=== PATIENT | male | born 1975 | race Asian ===

== ENCOUNTER 2019-01-23 22:27 | Emergency (ER) | payer SELFPAY ==
[~2019-01-23] VITALS: Ht 182.9 cm; Wt 95.0 kg
[2019-01-23 23:22] LABS: BASOPHILS # (AUTO) 0.04 x10^3/uL (0-0.1); BASOPHILS % (AUTO) 1 % (0-1); EOSINOPHILS # (AUTO) 0.12 x10^3/uL (0-0.4); EOSINOPHILS % (AUTO) 2 % (1-7); LYMPHOCYTES % (AUTO) 18 % (22-44); MD NO; MEAN CORPUSCULAR HEMOGLOBIN 30.4 pg (27.5-34.5); MEAN CORPUSCULAR HGB CONC 33.4 g/dL (33.2-36.2); MEAN CORPUSCULAR VOLUME 91.1 fL (81-97); MEAN PLATELET VOLUME 6.4 fL (7.4-10.4); MONOCYTES # (AUTO) 0.52 x10^3/uL (0.2-0.8); MONOCYTES % (AUTO) 7 % (2-9); NEUTROPHILS # (AUTO) 5.46 x10^3/uL (1.8-6.8); NEUTROPHILS % (AUTO) 74 % (42-75); PLATELET COUNT 371 x10^3/uL (130-400); RED BLOOD COUNT 4.76 x10^6/uL (4.38-5.82)
[2019-01-23 23:33] LABS: ALANINE AMINOTRANSFERASE 29 U/L (12-78); ALBUMIN 3.5 g/dL (3.4-5.0); ANION GAP 2 mmol/L (5-15); CALCIUM 8.4 mg/dL (8.5-10.1); CHLORIDE 111 mmol/L (98-107); CREATININE 1.08 mg/dL (0.7-1.3)
[2019-01-23 23:37] LABS: ALKALINE PHOSPHATASE 92 U/L (45-117); BILIRUBIN,TOTAL 0.4 mg/dL (0.2-1.0); TOTAL PROTEIN 6.6 g/dL (6.4-8.2); TROPONIN I < 0.015 ng/mL (0.000-0.045)
--- NOTE | 2019-01-24 01:32 | NUR ---
pt to room from lobby
--- NOTE | 2019-01-24 01:52 | NUR ---
ASSUMED CARE OF PATIENT. PATIENT REPORTS HAVING CENTER CHEST PAIN THAT HAS RESOVLED, BUT PATIENT STILL HAS EPIGASTRIC ABD PAIN. NO ACUTE DISTRESS NOTED. VS STABLE. CALL LIGHT IN PLACE. WILL CONTINUE TO MONITOR.
[2019-01-24] MEDS ORDERED: MAALOX/HYOSCYAMINE/LIDOCAINE 45 ML BTL ONE (01:56)
[2019-01-24] MEDS ORDERED: MAALOX/HYOSCYAMINE/LIDOCAINE 45 ML BTL PO ONE (02:00)
--- NOTE | 2019-01-24 02:10 | NUR ---
LABS DRAWN, BLANKET GIVEN. VS STABLE. CALL LIGHT IN PLACE. WILL CONTNIUE TO MONITOR.
[2019-01-24 02:34] VITALS: BP 115/74
--- NOTE | 2019-01-24 02:34 | NUR ---
PT REPORTS HE IS FEELING BETTER. PT IS READY FOR DC. VS STABLE.
== END 2019-01-24 02:46 | disposition home or self-care (01) ==
LOC: ED 01-24 02:35
DX: K29.00 Acute gastritis without bleeding (principal); R06.02 Shortness of breath
CPT/HCPCS: 36415; 71045; 76700; 80053; 83690; 84484; 85025; 93005; 99284

== ENCOUNTER 2019-06-10 13:13 | Emergency (ER) | payer MEDICAID ==
[~2019-06-10] VITALS: Ht 182.9 cm; Wt 85.0 kg
[2019-06-10 15:48] VITALS: BP 113/62
== END 2019-06-10 15:50 | disposition home or self-care (01) ==
LOC: ED 13:56
DX: B34.9 Viral infection, unspecified (principal); T69.022A Immersion foot, left foot, initial encounter; F17.200 Nicotine dependence, unspecified, uncomplicated
CPT/HCPCS: 36415; 71045; 80048; 81003; 82040; 85025; 93005; 99284

== ENCOUNTER 2020-08-10 17:27 | Emergency (ER) | payer MEDICAID ==
[~2020-08-10] VITALS: Ht 182.9 cm; Wt 83.5 kg
[2020-08-10 18:11] LABS: BASOPHILS # (AUTO) 0.02 x10^3/uL (0-0.1); BASOPHILS % (AUTO) 0 % (0-1); EOSINOPHILS # (AUTO) 0.07 x10^3/uL (0-0.4); EOSINOPHILS % (AUTO) 1 % (1-7); LYMPHOCYTES # (AUTO) 1.39 x10^3/uL (1-3.4); LYMPHOCYTES % (AUTO) 15 % (22-44); MD NO; MEAN CORPUSCULAR HEMOGLOBIN 30.6 pg (27.5-34.5); MEAN CORPUSCULAR HGB CONC 33.4 g/dL (33.2-36.2); MEAN PLATELET VOLUME 6.1 fL (7.4-10.4); MONOCYTES # (AUTO) 0.32 x10^3/uL (0.2-0.8); MONOCYTES % (AUTO) 4 % (2-9); NEUTROPHILS # (AUTO) 7.21 x10^3/uL (1.8-6.8); NEUTROPHILS % (AUTO) 80 % (42-75); PLATELET COUNT 394 x10^3/uL (130-400); RED CELL DISTRIBUTION WIDTH 13.6 % (9.4-14.8)
[2020-08-10 18:24] LABS: ALANINE AMINOTRANSFERASE 23 U/L (12-78); ALBUMIN 2.9 g/dL (3.4-5.0); ANION GAP 5 mmol/L (5-15); CALCIUM 8.3 mg/dL (8.5-10.1); CHLORIDE 110 mmol/L (98-107); CREATININE 1.25 mg/dL (0.7-1.3)
[2020-08-10 18:26] LABS: ALKALINE PHOSPHATASE 65 U/L (45-117); BILIRUBIN,TOTAL 0.2 mg/dL (0.2-1.0); TOTAL PROTEIN 6.2 g/dL (6.4-8.2)
[2020-08-10] MEDS ORDERED: MAALOX/HYOSCYAMINE/LIDOCAINE 45 ML BTL PO ONE (19:00)
[2020-08-10 19:11] LABS: MICROSCOPIC NOT IND
[2020-08-10] MEDS ORDERED: MAALOX/HYOSCYAMINE/LIDOCAINE 45 ML BTL ONE (19:16)
[2020-08-10 20:11] VITALS: BP 105/69
== END 2020-08-10 20:20 | disposition home or self-care (01) ==
LOC: ED 19:49
DX: K29.00 Acute gastritis without bleeding (principal); R10.13 Epigastric pain
CPT/HCPCS: 36415; 74022; 76700; 80053; 81003; 83690; 85025; 93005; 99285

== ENCOUNTER 2020-08-23 05:31 | Emergency (ER) | payer MEDICAID ==
[~2020-08-23] VITALS: Ht 182.9 cm; Wt 86.5 kg
--- NOTE | 2020-08-23 05:58 | NUR ---
pt ambulates from triage to room with steady gait.
[2020-08-23] MEDS ORDERED: PANTOPRAZOLE 20MG TABLET PO ONE (06:00)
[2020-08-23] MEDS ORDERED: MAALOX/HYOSCYAMINE/LIDOCAINE 45 ML BTL PO ONE (06:00)
[2020-08-23] MEDS ORDERED: PANTOPRAZOLE 20MG TABLET ONE (06:05)
[2020-08-23] MEDS ORDERED: MAALOX/HYOSCYAMINE/LIDOCAINE 45 ML BTL ONE (06:05)
--- NOTE | 2020-08-23 06:08 | NUR ---
pt medicated per mar.
[2020-08-23] MEDS ORDERED: SUCRALFATE 1 GM/10 ML UDC PO ONE (06:39)
--- NOTE | 2020-08-23 06:50 | NUR ---
report of pt to [facility]. all questions answered.
[2020-08-23 06:55] VITALS: BP 109/55
--- NOTE | 2020-08-23 06:58 | NUR ---
REPORT FROM IVAN GALEANO. PT MEDICATED PER JAN. BLANKET PROVIDED PER REQUEST. PAIN CURRENTLY AT A 12/25 AFTER MEDICATION.
[2020-08-23] MEDS ORDERED: SUCRALFATE 1 GM TABLET PO ONE (07:00)
[2020-08-23] MEDS ORDERED: SUCRALFATE 1 GM TABLET PO SCH (07:00)
== END 2020-08-23 07:49 | disposition home or self-care (01) ==
LOC: ED 07:30
DX: K25.3 Acute gastric ulcer without hemorrhage or perforation (principal); K21.9 Gastro-esophageal reflux disease without esophagitis; F17.210 Nicotine dependence, cigarettes, uncomplicated
CPT/HCPCS: 99406

== ENCOUNTER 2021-04-24 17:12 | Emergency (ER) | payer MEDICAID ==
[~2021-04-24] VITALS: Ht 182.9 cm; Wt 81.0 kg
--- NOTE | 2021-04-24 17:21 | NUR ---
THIS IS A 46 YO M BIB EMS W/ C/O GENERAL ABD PAIN X30 MINUTES DRAFTER TOPOGRAPHICAL (RESOLVED). PT REPORTS DONATED PLASMA TODAY, THEN ATE GAS STATION DONUTS AND MILK PRIOR TO ABD PAIN. PER EMS PT WAS 90'S/50'S SYSTOLIC. PT RECEIVED 600ML NS BOLUS DRAFTER TOPOGRAPHICAL. PIV DRAFTER TOPOGRAPHICAL. PT RESTING ON GURNEY W/ CALL LIGHT IN REACH AND SIDE RAILS UPX2. VSS, NADN. AWAITING ED EVAL.
--- NOTE | 2021-04-24 17:55 | NUR ---
PT RESTING ON GURNEY W/ CALL LIGHT IN REACH AND SIDE RAILS UPX2. RESP EVEN AND UNLABORED, NADN. AWAITING ORDERS.
[2021-04-24 18:22] LABS: BASOPHILS % (AUTO) 1 % (0-1); EOSINOPHILS % (AUTO) 1 % (1-7); LYMPHOCYTES % (AUTO) 14 % (22-44); MEAN CORPUSCULAR HEMOGLOBIN 31.3 pg (27.5-34.5); MEAN CORPUSCULAR HGB CONC 33.3 g/dL (33.2-36.2); MEAN PLATELET VOLUME 6.1 fL (7.4-10.4); MONOCYTES % (AUTO) 5 % (2-9); NEUTROPHILS % (AUTO) 80 % (42-75); PLATELET COUNT 163 x10^3/uL (130-400); RED BLOOD COUNT 4.88 x10^6/uL (4.38-5.82); RED CELL DISTRIBUTION WIDTH 13.7 % (9.4-14.8)
[2021-04-24] MEDS ORDERED: SODIUM CHLORIDE 0.9% 1,000ML IVBOLUS ONE (18:30)
[2021-04-24 18:31] LABS: ALANINE AMINOTRANSFERASE 31 U/L (12-78); ALBUMIN 2.4 g/dL (3.4-5.0); ANION GAP 3 mmol/L (5-15); CALCIUM 7.9 mg/dL (8.5-10.1); CHLORIDE 113 mmol/L (98-107); CREATININE 1.04 mg/dL (0.7-1.3)
[2021-04-24 18:33] LABS: ALKALINE PHOSPHATASE 80 U/L (45-117); BILIRUBIN,TOTAL 0.2 mg/dL (0.2-1.0)
[2021-04-24] MEDS ORDERED: SODIUM CHLORIDE FLUSH 10ML SYR IVF ONE (19:00)
--- NOTE | 2021-04-24 19:04 | NUR ---
RECEIEVED REPORT FROM JASMEET LOVE, TRANSFER OF CARE
[2021-04-24 19:27] VITALS: BP 116/72
--- NOTE | 2021-04-24 19:55 | NUR ---
Patient given discharge instructions and they have confirmed that they understand the instructions. Patient ambulatory with steady gait. NAD, all questions answered appropriately, denies additional needs at this time. No personal belongings left in room after discharge.
== END 2021-04-24 19:58 | disposition home or self-care (01) ==
LOC: ED 19:00
DX: R10.84 Generalized abdominal pain (principal); R55 Syncope and collapse; R11.0 Nausea; R94.31 Abnormal electrocardiogram [ECG] [EKG]; R42 Dizziness and giddiness; K21.9 Gastro-esophageal reflux disease without esophagitis; Z87.11 Personal history of peptic ulcer disease
CPT/HCPCS: 36415; 80053; 85025; 93005; 96360; 99284; J7030